=== PATIENT | female | born 2000 | race Caucasian/White ===

== ENCOUNTER → 2018-12-05 11:58 | Outpatient (CLI) | payer MEDICAID | END | disposition home or self-care (01) | LOC: D.LDO 11:58 | PROVIDERS: ATTEND Obstetrics & Gynecology | DX: O26.899 Other specified pregnancy related conditions, unspecified trimester (principal) ==

== ENCOUNTER 2019-01-31 17:23 | Emergency (ER) | payer MEDICAID ==
[~2019-01-31] VITALS: Ht 170.2 cm; Wt 84.1 kg
[2019-01-31 17:51] VITALS: Ht 170.2 cm; Wt 84.1 kg
[2019-01-31] MEDS ORDERED: PRENAVITE1 TAB PO (17:53)
[2019-01-31 18:25] LABS: BASOPHILS 0.2 % (0-2); HEMATOCRIT 38.7 % (36.0-48.0); IMMATURE GRANULOCYTES 0.2 % (0-5); LYMPHOCYTES 26.5 % (15-50); MCH 30.4 pg (26.0-34.0); MCHC 33.6 g/dL (31.0-37.0); MCV 90.6 fL (80.0-100.0); MEAN PLATELET VOLUME 10.3 fL (7.4-10.4); MONOCYTES 8.2 % (2-11); NEUTROPHILS 63.9 % (40-80); PLATELET COUNT 271 10x3/uL (130-400); RBC 4.27 10x6/uL (4.00-5.40); RDW 13.2 % (11.5-14.5); WBC 12.5 10x3/uL (4.8-10.8)
[2019-01-31 18:35] LABS: COLOR YELLOW (YELLOW)
[2019-01-31 18:36] LABS: APPEARANCE CLEAR (CLEAR); BILIRUBIN NEGATIVE (NEGATIVE); GLUCOSE NEGATIVE (NEGATIVE); KETONE NEGATIVE (NEGATIVE); NITRITE NEGATIVE (NEGATIVE); PROTEIN NEGATIVE (NEGATIVE); UROBILINOGEN NORMAL (NORMAL)
[2019-01-31 18:37] LABS: BACTERIA MODERATE /hpf (NEGATIVE); EPITHELIAL CELLS 0-5 /hpf (0-5); RED CELLS - URINE OCC /hpf (0-5); WHITE CELLS - URINE 0-5 /hpf (NEGATIVE)
[2019-01-31 18:41] LABS: CALC OSMOLALITY 267 mosm/kg (275-300); CARBON DIOXIDE 22.3 mmol/L (21.0-32.0); CHLORIDE - SERUM 103 mmol/L (98-107); CREATININE - SERUM 0.6 mg/dL (0.6-1.3); GLUCOSE 76 mg/dL (74-106); POTASSIUM - SERUM 3.7 mmol/L (3.5-5.1); SODIUM 135 mmol/L (136-145); UREA NITROGEN 11 mg/dL (7-18); eGFR NON AFRICAN AMERICAN > 90 mL/min (90-120)
[2019-01-31 19:14] LABS: ALBUMIN 3.2 g/dL (3.4-5.0); ALKALINE PHOSPHATASE 61 U/L (46-116); ALT (SGPT) 18 U/L (10-68); BILIRUBIN - TOTAL 0.17 mg/dL (0.2-1.3); HCG - QUANTITATIVE (MATERNAL) 27421 mIU/mL; PROTEIN - SERUM 7.2 g/dL (6.4-8.2)
[2019-01-31 20:50] VITALS: BP 115/55
== END 2019-01-31 20:50 | disposition home or self-care (01) ==
LOC: D.ER 17:23
PROVIDERS: Family Medicine
DX: O26.892 Other specified pregnancy related conditions, second trimester (principal); Z3A.17 17 weeks gestation of pregnancy; R10.9 Unspecified abdominal pain

== ENCOUNTER → 2019-05-04 14:26 | Outpatient (CLI) | payer MEDICAID ==
[2019-01-31 17:51] VITALS: BMI 29.0
[~2019-05-04 14:26] MED LIST: PRENAVITE1 TAB PO
== END | disposition home or self-care (01) ==
LOC: D.LDO 14:26
PROVIDERS: ATTEND Student in an Organized Health Care Education/Training Program
DX: O26.899 Other specified pregnancy related conditions, unspecified trimester (principal); Z3A.00 Weeks of gestation of pregnancy not specified

== ENCOUNTER 2019-06-21 12:50 | Outpatient (CLI) | payer MEDICAID ==
[2019-01-31 17:51] VITALS: BMI 29.0
[2019-06-21 13:24] LABS: BASOPHILS 0.1 % (0-2); EOSINOPHILS 1.6 % (0-7); HEMATOCRIT 36.3 % (36.0-48.0); HEMOGLOBIN 11.7 g/dL (12-16); IMMATURE GRANULOCYTES 0.9 % (0-5); LYMPHOCYTES 18.3 % (15-50); MCHC 32.2 g/dL (31.0-37.0); MCV 89.9 fL (80.0-100.0); MEAN PLATELET VOLUME 11.3 fL (7.4-10.4); MONOCYTES 10.1 % (2-11); PLATELET COUNT 238 10x3/uL (130-400); RBC 4.04 10x6/uL (4.00-5.40); WBC 14.1 10x3/uL (4.8-10.8)
[2019-06-21 13:39] LABS: CALC OSMOLALITY 265 mosm/kg (275-300); CALCIUM 8.5 mg/dL (8.5-10.1); CARBON DIOXIDE 20.3 mmol/L (21.0-32.0); CHLORIDE - SERUM 103 mmol/L (98-107); CREATININE - SERUM 0.5 mg/dL (0.6-1.3); POTASSIUM - SERUM 3.9 mmol/L (3.5-5.1); SODIUM 135 mmol/L (136-145); UREA NITROGEN 8 mg/dL (7-18); eGFR NON AFRICAN AMERICAN > 90 mL/min (90-120)
[2019-06-21 13:42] LABS: GLUCOSE 66 mg/dL (74-106)
[2019-06-21 13:46] LABS: ALBUMIN 2.5 g/dL (3.4-5.0); ALKALINE PHOSPHATASE 161 U/L (30-120); ALT (SGPT) 11 U/L (10-68); BILIRUBIN - TOTAL 0.24 mg/dL (0.2-1.3); PROTEIN - SERUM 6.8 g/dL (6.4-8.2)
== END 2019-06-21 13:00 | disposition home or self-care (01) ==
LOC: D.LDO 12:50
PROVIDERS: ATTEND Obstetrics & Gynecology
DX: O26.893 Other specified pregnancy related conditions, third trimester (principal); Z3A.37 37 weeks gestation of pregnancy; R42 Dizziness and giddiness

== ENCOUNTER 2019-07-03 20:10 | Inpatient (IN) | payer MEDICAID ==
[~2019-07-03] VITALS: Ht 170.2 cm; Wt 107.5 kg
[2019-07-03 20:29] VITALS: BP 117/68; Ht 170.2 cm; Wt 107.5 kg
[2019-07-03 21:12] LABS: HEMATOCRIT 35.4 % (36.0-48.0); HEMOGLOBIN 11.3 g/dL (12-16); MCH 28.9 pg (26.0-34.0); MCHC 31.9 g/dL (31.0-37.0); MCV 90.5 fL (80.0-100.0); MEAN PLATELET VOLUME 11.2 fL (7.4-10.4); RBC 3.91 10x6/uL (4.00-5.40); RDW 14.6 % (11.5-14.5); WBC 12.2 10x3/uL (4.8-10.8)
[2019-07-03 21:31] LABS: BILIRUBIN NEGATIVE (NEGATIVE); GLUCOSE NEGATIVE (NEGATIVE); KETONE NEGATIVE (NEGATIVE); NITRITE NEGATIVE (NEGATIVE); UROBILINOGEN NORMAL (NORMAL)
--- NOTE | 2019-07-04 05:39 | NUR ---
DR CONNOR CALLS THE UNIT. REQUEST PT HAVE A VAG EXAM AND CALL HIM BEFORE STARTING PITOCIN. Adriana RIGGINS RN NOTIFIED.
--- NOTE | 2019-07-04 12:36 | MORECARE ---
CASE MANAGEMENT DISCHARGE SUMMARY PATIENT: CEM NEIL UNIT: [id number] ADM DATE: 07/03/19 AGE: 18 : 98 SEX: F ROOM/BED: D.1275 AUTHOR: JULIEN REAGAN PHYSICIAN: REFERRING PHYSICIAN: PAVEL CONNOR MD DATE OF SERVICE: 07/04/19 Discharge Plan Patient Name: CEM NEIL [facility] [facility] 2000 Planned Disposition: Home Anticipated Discharge Date: 07/06/19 Discharge Date: Expected LOS: 3 Initial Reviewer: [email or web address] Initial Review Date: 07/03/2019 Generated: 07/04/19 1:35 pm Patient Name: CEM NEIL Page 12975 at 1236 All edits/amendments must be made on the electronic document DICTATION DATE: 07/04/19 1235 ATTENUATOR: AKIRA 07/04/19 1235 RPT#: [id number] DC DATE: STATUS: ADM IN [facility] [address] [place] [address] END OF REPORT
[2019-07-05 11:09] LABS: RAPID PLASMA REAGIN Reactive (Non Reactive); TREPONEMA PALLIDUM AB Reactive (Non Reactive)
[2019-07-06] VITALS (7 sets, daily range): BP systolic 98–126; BP diastolic 52–65
--- NOTE | 2019-07-06 13:22 | NUR ---
UNABLE TO COUNT BEFORE THE PROCEDURE, XRAY TAKE TO CONFIRM NOTHING WAS LEFT IN THE PATIENT
--- NOTE | 2019-07-06 14:19 | NUR ---
1355 RECEIVED PATIENT AWAKE AND ALERT. UTERUS MIDLINE AND BOGGY. FUNDAL HEIGHT 2 FINGER BREATHS ABOVE UMBILICUS. UTERINE MASSAGE STARTED. SEVERAL LARGE CLOTS EXPELLED WITH DARK RED DRAINAGE. UTERUS FIRMING UP.
--- NOTE | 2019-07-06 14:54 | NUR ---
RECEIVED PT FROM VIA BED TO ROOM 1273. BED LOCKED AND PLACED IN LOW POSITION. VSS. HRRR WITHOUT AUDIBLE MURMUR. BBS CLEAR. BS HYPOACTIVE. ABDOMEN SOFT/NON-DISTENDED. FUNDUS FIRM AT U/U. RUBRA LOCHIA SMALL AMT. NO CLOTS EXPRESSED ON FUNDAL MASSAGE. PERIPAD CHANGED. ABDOMINAL INCISION WITH DERMABOND. NO REDNESS, SWELLING OR DRAINAGE NOTED. MILD BRUISING NOTED. PT UNABLE TO MOVE LEGS. DENIES PAIN. SCDS ON BLE. PUMP ON. LOVELACE TO GRAVITY DRAINING DARK, YELLOW URINE. PIV SITE CLEAR TO LEFT WRIST. NS WITH PITOCIN INFUSING AT 125 ML/HR. SITE CLEAR. PT ORIENTED TO ROOM, BED, AND CALL LIGHT. SR UP X 2. CALL LIGHT IN REACH.
--- NOTE | 2019-07-06 15:45 | NUR ---
PT LYING IN SEMI-PINA'S POSITION IN BED. EYES CLOSED. RESP NON-LABORED. PT WAKES UPON ENTERING ROOM. VSS. PT DENIES PAIN OR NEEDS.
--- NOTE | 2019-07-06 17:15 | NUR ---
A LONG CRANE HELPER TO ROOM. VISITS WITH PT.
--- NOTE | 2019-07-06 17:30 | NUR ---
PT C/O SHIVERING AND PAIN OF "3" ON 0-10 PAIN SCALE. DEMEROL 25 MG GIVEN SIVP OVER 2 MINUTES. PT INSTRUCTED ON MED. VERBALIZES UNDERSTANDING. POPSICLE GIVEN TO PT REQUESTED.
--- NOTE | 2019-07-06 17:42 | MORECARE ---
CASE MANAGEMENT DISCHARGE SUMMARY PATIENT: CEM NEIL UNIT: [id number] ADM DATE: 07/03/19 AGE: 18 : [birth year] SEX: F ROOM/BED: D.1273 AUTHOR: JULIEN REAGAN PHYSICIAN: REFERRING PHYSICIAN: PAVEL CONNOR MD DATE OF SERVICE: 07/06/19 Discharge Plan Patient Name: CEM NEIL Facility: [facility]:[place] : 2000 Planned Disposition: Home Anticipated Discharge Date: 07/06/19 Discharge Date: Expected LOS: 3 Initial Reviewer: [email or web address] Initial Review Date: 07/03/2019 Generated: 07/06/19 6:41 pm Last DP export: 07/04/19 11:36 a Patient Name: CEM NEIL Page [phone] at 1742 All edits/amendments must be made on the electronic document DICTATION DATE: 07/06/191740 DIESEL RETROFIT DESIGNER: AKIRA 07/06/191740 RPT#: [id number] DC DATE: STATUS: ADM IN [facility] [address] [place] [address] END OF REPORT
[2019-07-07] VITALS (7 sets, daily range): BP systolic 104–126; BP diastolic 53–59
--- NOTE | 2019-07-07 00:25 | NUR ---
PT AMBULATING IN [place] TO ICE MACHINE. TOLERATING WELL. NO NEEDS VOICED. Cassius MESSER, RN
--- NOTE | 2019-07-07 00:40 | NUR ---
PT AWAKE AT THIS TIME. NO DISTRESS NOTED. PT STATES THAT PAIN IS A 6/10 BUT WILL LET US KNOW WHEN SHE WANTS SOMETHING. Cassius RAM RN
--- NOTE | 2019-07-07 02:21 | NUR ---
PT MEDICATED FOR PAIN LEVEL OF 10/10. PT GIVEN PERCOCET. WILL CONTINUE TO MONITOR. PT INSTRUCTED NOT TO WAIT UNTIL PAIN IS A 10/10 TO ASK FOR PAIN MEDICTION. UNDERSTANDING VERBALIZED. Cassius RAM RN
--- NOTE | 2019-07-07 03:30 | NUR ---
PT STATES THAT SHE HAS NO PAIN AT THIS TIME. WILL CONTINUE TO MONITOR. Cassius RAM RN
--- NOTE | 2019-07-07 06:39 | NUR ---
PT MEDICATED WITH PERCOCET FOR PAIN LEVEL OF 7/10. L ADRIÁN, RN
--- NOTE | 2019-07-07 07:20 | NUR ---
ASSUMED CARE OF PATIENT. CURRENTLY SLEEPING TOWARD RIGHT SIDE. RESP EVEN. VISITOR AWAKE, IN CRIB. SIDERAILS UP X 2, CALL LIGHT IN REACH. WILL COMPLETE SHIFT ASSESSMENT WHEN AWAKE.
--- NOTE | 2019-07-07 07:58 | NUR ---
PT STILL SLEEPING, PT MOTHER BROUGHT INFANT TO NURSERY WHILE SHE GOES HOME TO SHOWER.
--- NOTE | 2019-07-07 08:42 | NUR ---
SLEEPING ON BACK. RESPIRATIONS EVEN. SIDERAILS UP X 2, CALL LIGHT IN REACH. IN NURSERY.
--- NOTE | 2019-07-07 08:50 | NUR ---
AROUSED FROM SLEEP FOR ASSESSMENT AND DR CONNOR HERE. SHIFT ASSESSMENT COMPLETED. DENIES PAIN OR NEEDING ANYTHING. SAYS SHE ATE A LITTE BREAKFAST. PASSING GAS. DENIES NEEDING ANYTHING. CURRENTLY BOTTLE FEEDING STATES "BUT THEY WANT ME TO TRY TO BREASTFEED". PLANS TO AMBULATE WHEN HER MOTHER RETURNS. DESIRES TO SLEEP STATES "I DIDN'T SLEEP MUCH LAST NIGHT." INFANT IN NURSERY. SIDERAILS UP X 2, CALL LIGHT IN REACH. TO CALL IF ANYTHING IS NEEDED.
--- NOTE | 2019-07-07 09:15 | NUR ---
NON-SMOKER, A+ RUBELLA IMMUNE, BOTTLEFEEDING, WILL CHECK TDAP STATUS.
--- NOTE | 2019-07-07 10:10 | NUR ---
SLEEPING ON BACK. RESPIRATIONS EVEN. INFANT REMAINS IN NURSERY. NO CURRENT VISITORS. SIDERAILS REMAIN UP X 2 AND CALL LIGHT IS WITHIN REACH. CURRENTLY NO SCDS ON DUE TO PT UP AD IMAN STATUS.
--- NOTE | 2019-07-07 11:15 | NUR ---
SITTING UP IN BED HOLDING IN ARMS AND BOTTLEFEEDING. ASKED FOR FRESH ICE WATER. DENIES NEEDING ANYTHING ELSE. CALL LIGHT IN REACH. TO CALL IF ASSISTANCE IS NEEDED. VERBALIZED UNDERSTANDING.
--- NOTE | 2019-07-07 12:10 | NUR ---
REQUESTED PAIN MEDICATION FOR 10/10 SHARP PAIN AND PRESSURE IN INCISION/ABDOMEN AND RIGHT SHOULDER. SAYS SHE GOT UP AND STARTED HURTING. NO ACUTE DISTRESS NOTED. SMILES, TALKING APPROPRIATELY. RATED 10/10 AFTER REVIEWING PAIN SCALE. SCHEDULED TORADOL GIVEN ALONG WITH PERCOCET 10 MG FOR RELIEF. ALSO DISCUSSED RELIEF MEASURES FOR GAS, POSITIONED TO LLD WITH RIGHT LEG FLEXED AT KNEE. SAYS SHE HAS PASSED SOME GAS. WILL CHECK ON ORDER FOR MYLICON AND DISCUSSED AMBULATED AFTER TRYING THIS POSITION AND LUNCH. SAYS SHE DID SIT ON THE COUCH FOR AWHILE. PT MOTHER BACK IN ROOM. CURRENTLY BOTTLE FEEDING INFANT. SIDERAILS UP X 2, CALL LIGHT PLACED IN REACH.
--- NOTE | 2019-07-07 13:15 | NUR ---
DENIES PAIN AT THIS TIME. STATES "I'M FEELING BETTER". 0. VISITOR AND INFANT IN ROOM. TO CALL WHEN READY TO SHOWER AND HAVE LINEN CHANGE. ENCOURAGED TO TRY TO EAT LUNCH. SIDERAILS UP X 2, CALL LIGHT IN REACH. STILL LAYING ON LEFT SIDE. INFORMED SHE CAN HAVE MYLICON IF NEEDED.
--- NOTE | 2019-07-07 14:06 | NUR ---
UP IN SHOWER. INSTRUCTED ON INCISION CARE WITH YULISAANSE. COMPLETE LINEN CHANGE DONE. PT'S MOTHER IN ROOM WITH INFANT. PLANS TO AMBULATE AFTER SHOWER.
--- NOTE | 2019-07-07 14:51 | NUR ---
AMBULATED IN [place], TO NURSERY WINDOW AND AROUND L&D. TOLERATED WELL. PT WALKING WITH HER MOTHER. INFANT IN NURSERY. NO REQUESTS.
--- NOTE | 2019-07-07 16:28 | NUR ---
GETTING READY TO GET UP TO BATHROOM. IN CRIB. VISITOR ON COUCH. DENIES NEEDING ANYTHING. TO CALL IF ANYTHING IS NEEDED. ATE < 20 ML THIS CYCLE. NURSERY RN NOTIFIED AND SAID INFANT ATE PLENTY LAST FEEDING. IF INFANT HUNGRY PRIOR TO 1800 PT TO FEED AGAIN. PT/MOTHER NOTIFIED.
--- NOTE | 2019-07-07 18:09 | NUR ---
SCHEDULE TORADOL GIVEN AND PERCOCET 5 MG GIVEN FOR 5/10 LOW BACK SHARP PAIN AFTER DISCUSSING PAIN MANAGEMENT OPTIONS. SAYS SHE STILL GET RIGHT SHOULDER/CHEST PAIN WITH SOME DIFFICULTY BREATHING AND HAVING DIFFICULTY HOLDING INFANT. PT'S MOTHER SAYS SHE HAS HAD SAME COMPLAINT SINCE SURGERY. DENIES CURRENT PAIN NOW. NO SOB NOTED PULSE OX AT 96%. PALPATED SHOULDER AND UPPER PECTORIAL MUSCLE, DENIES PAIN. STRONG MEAL ROOM HAND RIGHT HAND. CURRENTLY LAYING TOWARD RIGHTS SIDE. SAYS WHEN SHE HAS CHEST/SHOULDER PAIN IT HURTS TO BREATH IN. DENIES PAIN ON INSPIRATION AT THIS TIME. INFORMED PT WILL LET MD KNOW. ALSO INFORMED PT TO CALL NURSE TO ROOM WHEN IT IS OCCURING. HAD BM THIS AFTERNOON.
--- NOTE | 2019-07-07 18:19 | NUR ---
DR CONNOR NOTIFIED OF PT COMPLAINT. SAYS THAT SHE MENTIONED SAME SHOULDER PAIN IN SURGERY. TO NOTIFY HIM IT TACHPNEA OR DYSPNEA. HE WILL EVALUATE IN THE MORNING.
--- NOTE | 2019-07-07 18:22 | NUR ---
PT NOTIFIED OF DR CONNOR'S PLANS TO EVALUATE CHEST/SHOULDER PAIN TOMORROW UNLESS SOMETHING CHANGES TONIGHT. VERBALIZED UNDERSTANDING.
--- NOTE | 2019-07-07 19:00 | NUR ---
THIS RN AND Rod HAYES,RN TO BEDSIDE FOR BEDSIDE SHIFT REPORT. MEDITECH PULLED UP PER THIS RN AND Rod HAYES RN SIGNED IN. BEDSIDE SHIFT REPORT WAS ACCIDENTLY NOT SAVED. PT PAIN AND NEEDS ASSESSED. PT REPORTS SHE STILL HAS BACK PAIN 6/10 EVEN AFTER ADMIN OF 1 PERCOCET 5/325MG GIVEN PER Rod HAYES RN. FRESH ICE WATER REQUESTED AND SERVED.
--- NOTE | 2019-07-07 19:11 | NUR ---
THIS RN TO BEDSIDE FOR SHIFT ASSESSMMENT. SEE FLOWSHEET.PT DENIES SHOULDER PAIN AT THIS TIME, ONLY REPORING SHARP, ACHING LOWER BACK PAIN. 2ND PERCOCET 5/325MG OFFERED W/TEACHING. PT ACCEPTS. SEE EMAR. WARM BLANKET PROVIDED AND PLACED BEHIND PT IN LOWER BACK AREA. PT STATING THAT WTH HER BACK PAIN SHE DOESN'T HINK SHE CAN WALK AGAIN TONIGHT. TEACHING GIVEN THAT DR CONNOR WILL BE LOOKING TO SEE IF SHE GETTING UP TO AMBULATE WHEN CONSIDERING DISCHARGE TOMORROW. PT INFORMED THAT THIS RN WILL DO ALL SHE CAN DO TO ALLEVIATE PAIN AND DISCOMFORT SO PT WILL FEEL LIKE AMBULATING IN HALLS. PT AND MOTHER VERBALIZE UNDERSTANDING AND ARE AGREEABLE TO PT AMBULATING IF BACK PAIN IS DECREASED. PT DENIES FURTHER NEEDS AT THIS TIME.
--- NOTE | 2019-07-07 20:00 | NUR ---
PT AMBULATING HALLS. REPORTS BACK PAIN IS BETTER. RETURNS TO ROOM.
--- NOTE | 2019-07-07 20:30 | NUR ---
ROUNDS MADE. PT NOW LYING AWAKE IN BED WATCHING TV. DENIES NEEDS. RATES PAIN 0/10.
--- NOTE | 2019-07-07 21:30 | NUR ---
ROUNDS MADE. PT LYING AWAKE IN LOW PINA'S W/LIGHTS TURNED DOWN. PAIN AND NEEDS ASSESSED. PT DENIES PAIN OR NEEDS AT THIS TIME.
--- NOTE | 2019-07-07 23:50 | NUR ---
THIS RN TO BEDSIDE FOR ROUNDING TO OFFER PAIN MEDICATION. PT LYING AWAKE IN BED USING CELL PHONE. PAIN AND NEEDS ASSESSED. PT REPORTS ABD PAIN AT INCISION THAT SHE DESCRIBES BURNING. RATES 6/10 AND ABD CRAMPING THAT SHE ALSO RATES 6/10. TORADOL 10MG AND PERCOCET 10/325MG PO GIVEN. PT DECLINES OFFER TO BRING HER ANYTHING TO DRINK OR EAT AT THIS TIME. HAS WATER AT BEDSIDE. VITAL SIGNS OBTAINED. SEE EMAR.
--- NOTE | 2019-07-08 00:30 | NUR ---
PT CALLED OUT, WOULD LIKE A SNACK, TAHIR CRACKERS AND A DRINK PROVIDED AT THIS TIME.
--- NOTE | 2019-07-08 01:06 | NUR ---
ROUNDS MADE FOR PAIN REASSESSMENT. PT WAKE LYING IN BED. REPORTS PAIN IS NOW 0/10. DENIES NEEDS.
--- NOTE | 2019-07-08 02:50 | NUR ---
ROUNDS MADE. PT LYING AWAKE IN BED. PAIN AND NEEDS ASSESSED. PT DENIES PAIN AT THIS TIME. FRESH ICE WATER SERVED. NO FURTHER NEEDS VOICED AT THIS TIME.
--- NOTE | 2019-07-08 04:00 | NUR ---
ROUNDS MADE. PT LYING AWAKE IN BED. PAIN AND NEEDS ASSESSED. PT REPORTS SHE BEGINNING TO ABD CRAMPING. RATES PAIN 4/10. PERCOCET GIVEN. SEE EMAR. PT DENIES FURTHER NEEDS.
--- NOTE | 2019-07-08 05:04 | NUR ---
ROUNDS MADE. PT RESTING IN LOW PINA'S W/EYES CLOSED. RESP EVEN AND UNLABORED. PAIN REASSESSED PER FACE SCALE. RATED 0/10. PT LEFT UNDISTURBED AT THIS TIME.
--- NOTE | 2019-07-08 07:10 | NUR ---
ASSUMED CARE OF PATIENT. SITTING UP IN BED HOLDING . VISITOR ON COUCH. READY TO GO HOME. DENIES SHOULDER/CHEST PAIN TODAY. PASSING GAS, 3/10 RIGHT INCISIONAL SHARP PAIN. DISCUSSED EDEMA IN LE PP AND RELIEF MEASURES. WILL COMPLETE SHIFT ASSESSMENT AFTER BREAKFAST. SIDERAILS UP X 2, CALL LIGHT IN REACH.
[2019-07-08 07:18] VITALS: BP 105/55
--- NOTE | 2019-07-08 07:18 | NUR ---
SHIFT ASSESSMENT WAS COMPLETED. TDAP IS DUE THIS YEAR PER [place] [facility] RECORD. DISCUSSED WITH PATIENT. DESIRES TO RECEIVE PRIOR TO DC HOME TODAY. WRITTEN INFORMATION ALSO PROVIDED. AND MOTHER IN ROOM. ANTICIPATE DC HOME TODAY.
--- NOTE | 2019-07-08 08:00 | NUR ---
AMBULATING IN [place]. TOLERATING WELL. IN NURSERY.
--- NOTE | 2019-07-08 09:11 | NUR ---
DR CONNOR VISITED PT. ANTICIPATE DC HOME.
--- NOTE | 2019-07-08 09:47 | NUR ---
RESTING IN BED. VISITOR HOLDING . DENIES NEEDING ANYTHING AT PRESENT. TO CALL IF ANYTHING IS NEEDED.
[2019-07-08] MEDS ORDERED: PERCOCET 7.5/321 TAB PO (09:49)
[2019-07-08] MEDS ORDERED: IBUPROFEN800 MG PO (09:49)
--- NOTE | 2019-07-08 10:34 | NUR ---
PERCOCET 10 MG GIVEN PO FOR RELIEF OF 6/10 LL ABDOMEN AND LOW BACK CRAMPING. TDAP GIVEN IM IN RIGHT DELTOID PER PT REQUEST. LAYING IN BED AT THIS TIME. VISITOR AND IN ROOM. NO ADDITIONAL REQUESTS AT THIS TIME. TO CALL IF ANYTHING ADDITIONAL IS NEEDED.
--- NOTE | 2019-07-08 11:32 | NUR ---
FEELING BETTER. PAIN DECREASED TO 3/10. IN NURSERY. WAITING ON DC HOME. TO REQUESTS. VISITOR X 1 IN ROOM. TO CALL IF ANYTHING IS NEEDED.
--- NOTE | 2019-07-08 14:25 | NUR ---
SITTING UP IN CHAIR WAITING FOR RIDE TO ARRIVE. DRESSED AND READY FOR DC. SWEEPER CLEANER [employer]RI[employer] JUST ARRIVED FOR DC. PT DESIRES PAIN MEDICATION NOW. WILL GIVE MED AND COMPLETE DC INSTRUCTIONS. IN NURSERY.
--- NOTE | 2019-07-08 14:49 | NUR ---
DC TEACHING COMPLETED TO INCLUDE POST OP C/S CARE, PP DEPRESSION, DANGER SIGNS, SIGNS OF INFECTION, BREAST CARE, MEDICATION ADMINISTRATION AND F/U. INFORMATION ALSO GIVEN ON BC OPTIONS, STI'S AND PREVENTION. PERCOCET 10 MG GIVEN PO FOR RELIEF OF 6/10 LOWER ABDOMEN CRAMPING. NO SPECIFIC QUESTIONS ASKED. WILL DC VIA W/C WHEN INFANT HAS BEEN DC'D.
--- NOTE | 2019-07-08 16:07 | NUR ---
IS NOT BEING DC HOME TODAY. DR CONNOR NOTIFIED. ORDERS RECEIVED TO ROOM PATIENT IN. PATIENT AWARE.
--- NOTE | 2019-07-08 16:48 | NUR ---
DC'D AMBULATORY TO ROOM 1221. TRANSFERRED TO ROOM 1221 FOR ROOMING-IN STATUS UNTIL INFANT DC'D HOME. HAS DC INSTRUCTIONS. PT MOTHER WENT TO CONDITIONING YARD SUPERVISOR PRESCRIPTIONS. ALL BELONGINS REMOVED FROM ROOM. INFANT IN CRIB.
--- NOTE | 2019-07-09 08:38 | MORECARE ---
CASE MANAGEMENT DISCHARGE SUMMARY PATIENT: CEM NEIL UNIT: [id number] ADM DATE: 07/03/19 AGE: 18 : [birth year] SEX: F ROOM/BED: D.1221 AUTHOR: JULIEN REAGAN PHYSICIAN: REFERRING PHYSICIAN: PAVEL CONNOR MD DATE OF SERVICE: 07/09/19 Discharge Plan Patient Name: CEM NEIL [facility] [facility] 2000 Planned Disposition: Home Anticipated Discharge Date: 07/06/19 Discharge Date: 07/08/2019 Expected LOS: 3 Initial Reviewer: [email or web address] Initial Review Date: 07/03/2019 Generated: 07/09/19 9:37 am Last DP export: 07/06/19 4:41 p Patient Name: CEM NEIL Page [id number] at 0838 All edits/amendments must be made on the electronic document DICTATION DATE: 07/09/19 0837 HVAC SALES REPRESENTATIVE: AKIRA 07/09/19 0837 RPT#: [id number] DC DATE:07/08/19 STATUS: DIS IN [facility] [address] [place] [address] END OF REPORT
== END 2019-07-08 16:46 | disposition home or self-care (01) | DRG 788 ==
LOC: D.LD 20:10 → D.WS 07-08 16:46
PROVIDERS: ADMIT Obstetrics & Gynecology; ATTEND Obstetrics & Gynecology
PROC: 3E033VJ Introduction of Other Hormone into Peripheral Vein, Percutaneous Approach (ICD-10-PCS; 2019-07-06)
PROC: 10907ZC Drainage of Amniotic Fluid, Therapeutic from Products of Conception, Via Natural or Artificial Opening (ICD-10-PCS; 2019-07-06)
PROC: 10D00Z1 Extraction of Products of Conception, Low, Open Approach (ICD-10-PCS; principal; 2019-07-06 13:03)
DX: O69.81X0 Labor and delivery complicated by cord around neck, without compression, not applicable or unspecified (principal); Z3A.39 39 weeks gestation of pregnancy; Z37.0 Single live birth